=== PATIENT | male | born 1955 | race Caucasian/White ===

== ENCOUNTER 2019-11-22 16:59 | Emergency (ER) | payer MEDICARE, MEDICAID ==
[~2019-11-22 16:59] MED LIST: HYDR12.56; METF-869; METO-169; SIMV-8
== END 2019-11-22 17:27 | disposition left against medical advice (07) ==
LOC: ER 16:59
DX: R06.02 Shortness of breath (principal); Z53.21 Procedure and treatment not carried out due to patient leaving prior to being seen by health care provider

== ENCOUNTER 2019-12-05 14:46 | Inpatient (IN) | payer MEDICARE, MEDICAID ==
[~2019-12-05] VITALS: Ht 177.8 cm; Wt 90.0 kg
[2019-12-05] MEDS ORDERED: SODIUM CHLORIDE 0.9% 1,000 ML IV ONE ×2 (15:02)
[2019-12-05] MEDS ORDERED: LEVOFLOXACIN 500MG 100 ML IV ONE (15:15)
[2019-12-05] MEDS ORDERED: IOHEXOL 300 MG/ML 100ML BOTTLE IJ ONE (15:18)
[2019-12-05 15:29] LABS: Eosinophils # (auto) 0 uL; Hemoglobin 14.1 g/dL (13.5-17.5); Lymphocytes # (auto) 0.4 uL; Lymphocytes % (auto) 1.7 % (10.0-50.0); Mean Corpuscular Volume 82.8 fL (80.0-100.0)
[2019-12-05] MEDS ORDERED: ALBUTEROL SULF 2.5 MG/0.5ML(0.5%) NEB SOLN NEB ONE (15:30)
[2019-12-05] MEDS ORDERED: IPRATROPIUM BROM 0.5 MG/2.5ML INH SOL NEB ONE (15:30)
[2019-12-05] MEDS ORDERED: methylPREDNISolone SOD SUCC 125 MG/2 ML VL IV ONE (15:30)
[2019-12-05 15:33] LABS: Basophils # (auto) 0.2 uL; Basophils % (auto) 0.9 % (0.0-2.0); Hematocrit 43.6 % (41.0-53.0); Mean Corpuscular Hemoglobin 26.8 pg (28.0-32.0); Mean Corpuscular Hgb Conc. 32.4 g/dL (32.0-36.0); Monocytes # (auto) 1.2 uL; Monocytes % (auto) 4.8 % (0.0-12.0); Neutrophils % (auto) 92.6 % (37.0-80.0); Platelet Count (auto) 184 10^3/uL (140-450); Red Blood Cells 5.26 10^6/uL (4.5-5.90); Red Cell Distribution Width 16.1 % (11.8-14.3); White Blood Cell 24.8 10^3/uL (4.4-10.8)
[2019-12-05 15:44] LABS: Albumin 2.4 g/dL (3.4-5.0); Calcium 8.4 mg/dL (8.5-10.1)
[2019-12-05 15:46] LABS: BUN/Creatinine Ratio 54.4
[2019-12-05 15:47] LABS: Lactic Acid w/Reflex 2.7 mmol/L (0.4-2.0)
[2019-12-05 15:51] LABS: Bilirubin, Total 0.9 mg/dL (0.2-1.0); Total Protein 5.9 g/dL (6.4-8.2)
[2019-12-05 15:57] LABS: INR 1.16 (0.9-1.15); Partial Thromboplastin Time 26.5 sec (23.64-32.05)
[2019-12-05] MEDS ORDERED: MIDAZOLAM DRIP 50 mg/50mL 50 ML IV SCH (17:25)
[2019-12-05] MEDS ORDERED: ETOMIDATE (2MG/ML) 20ML VIAL IV ONE (17:30)
[2019-12-05] MEDS ORDERED: SUCCINYLCHOLINE CHLORIDE 20 MG/ML 10ML VIAL IV ONE (17:30)
[2019-12-05] MEDS ORDERED: MIDAZOLAM DRIP 50 mg/50mL 50 ML IV ONE (17:36)
[2019-12-05] MEDS ORDERED: VANCOMYCIN 1GM/250ML 250 ML IV ONE (18:00)
[2019-12-05] MEDS ORDERED: MORPHINE SULF INJ 2 MG/ML SYRINGE 1ML IV PRN ×2 (19:45)
[2019-12-05] MEDS ORDERED: VANCOMYCIN PER PHARMACY 0 MG IV SCH (19:45)
[2019-12-05] MEDS ORDERED: NITROGLYCERIN 0.4 MG SL TAB SL PRN (19:45)
[2019-12-05] MEDS: SODIUM CHLORIDE 0.9% 1,000 ML IV SCH (20:54)
[2019-12-05] MEDS: HYDROmorphone HCL 2 MG/ML VL IV PRN (20:54)
[2019-12-05] MEDS: FAMOTIDINE (10MG/ML) 2ML VL IV SCH (22:51)
[2019-12-05] MEDS: DexAMETHasone SOD PHOS 4 MG/1ML SDV INJ IV SCH (22:51)
[2019-12-05 22:57] VITALS: BP 127/76
[2019-12-05 23:30] VITALS: BP 121/84
--- NOTE | 2019-12-05 23:30 | NUR ---
Admit to [facility] WESLEY admitted to [facility] via gurney on monitoring analyst, and portable 02. Patient transferred to bed, connected to unit monitoring and oxygen, and weighed by bed scale. Patient oriented to LIANNE ALVAREZ, primary RN, unit, room, bed, and unit policies regarding patient care and visiting hours. All questions and concerns addressed, patient verbalized understanding.
[2019-12-06] VITALS (12 sets, daily range): BP systolic 120–138; BP diastolic 65–82
[2019-12-06] MEDS: HYDROmorphone HCL 2 MG/ML VL IV PRN ×4 (00:10→22:49)
--- NOTE | 2019-12-06 00:10 | NUR ---
MORNING CARE PERFORMED MORNING CARE WITH CHG WIPES AND WASH CLOTHS TO THE FACE. PARTIAL LINEN CHANGE AND GOWN CHANGED. REPOSITIONED FOR COMFORT. SKIN REASSESSED AT THIS TIME. BED IN LOWEST POSITION, SIDE RAILS UP X2, CALL LIGHT WITHIN REACH. WILL CONTINUE TO MONITOR.
[2019-12-06] MEDS ORDERED: VANCOMYCIN 1GM/250ML 250 ML IV SCH (05:00)
[2019-12-06 05:15] LABS: Basophils % (auto) 0.3 % (0.0-2.0); Eosinophils # (auto) 0 uL; Hemoglobin 13.4 g/dL (13.5-17.5); Lymphocytes # (auto) 0.4 uL; Mean Corpuscular Hemoglobin 26.7 pg (28.0-32.0); Monocytes # (auto) 1.1 uL
[2019-12-06 05:17] LABS: Basophils # (auto) 0 uL; Hematocrit 41.8 % (41.0-53.0); Mean Corpuscular Volume 83.3 fL (80.0-100.0); Monocytes % (auto) 5.6 % (0.0-12.0); Neutrophils # (auto) 17.4 uL; Neutrophils % (auto) 92.1 % (37.0-80.0); Platelet Count (auto) 159 10^3/uL (140-450); Red Blood Cells 5.02 10^6/uL (4.5-5.90); Red Cell Distribution Width 16.2 % (11.8-14.3); White Blood Cell 18.9 10^3/uL (4.4-10.8)
[2019-12-06 05:37] LABS: Potassium 4.9 mmol/L (3.5-5.1)
[2019-12-06 05:45] LABS: Albumin 2.3 g/dL (3.4-5.0); BUN/Creatinine Ratio 57.1; Bilirubin, Total 0.8 mg/dL (0.2-1.0); Calcium 8.3 mg/dL (8.5-10.1); Total Protein 5.6 g/dL (6.4-8.2)
[2019-12-06] MEDS: SODIUM CHLORIDE 0.9% 1,000 ML IV SCH ×3 (06:43→23:09)
[2019-12-06] MEDS: LEVOFLOXACIN 750MG 150 ML IV SCH ×2 (06:44→09:28)
[2019-12-06] MEDS: DexAMETHasone SOD PHOS 4 MG/1ML SDV INJ IV SCH ×3 (06:45→22:49)
[2019-12-06] MEDS: ALBUTEROL SULF 2.5 MG/0.5ML(0.5%) NEB SOLN NEB PRN ×2 (06:55→22:22)
[2019-12-06] MEDS: IPRATROPIUM BROM 0.5 MG/2.5ML INH SOL NEB PRN ×3 (06:55→22:19)
--- NOTE | 2019-12-06 07:10 | NUR ---
END OF SHIFT REPORT GIVEN TO DAY SHIFT. CARE ENDORSED.
--- NOTE | 2019-12-06 08:20 | NUR ---
Opening Shift Note Assumed care of patient, awake and alert. Sitting up with sheppard position on the bed, on HF FiO2 75% with 35 LPM. Instructed on POC and to call for assist PRN, will continue to monitor for changes Q1hr and PRN.
--- NOTE | 2019-12-06 08:43 | NUR ---
Paged RT for desaturation, patient sitting up on the bed, having breakfast and had urinating once, developed SOB and desaturation, patient stated t hat doesn't want intubation.
--- NOTE | 2019-12-06 08:45 | NUR ---
O2 saturation 79-81%, SOB, RT at the bedside, Increased FiO2 to 90%, flow 40 LPM. will continue to monitor, patient still sitting up.
[2019-12-06] MEDS: FAMOTIDINE (10MG/ML) 2ML VL IV SCH ×2 (09:28→22:49)
--- NOTE | 2019-12-06 09:49 | NUR ---
Daughter Tatiana left me a message last night on my office phone requesting a callback. I called her this morning at 0945AM. She had a complaint about the ER last night. The nurse would not give her information about her father and hung up on her. According to the notes, she hung up on the ER nurse. She didn't have the password. I told her I would speak to my nurse in the ER. She also has a complaint about Dr. Armenta from her fathers last visit. She doesn't want him taking care of her father on this visit. I apologized for her bad experience at [facility]. She said when her mother was here with lung cancer, it was wonderful. I told her to ask for Filomena if she had anymore issues while her father is here. He is a DNR with terminal lung cancer. I told her I would see her in [facility] today.
--- NOTE | 2019-12-06 10:12 | NUR ---
Called and left the message to daughter because patient requested me to call her. Patient stated that he would like to see Doctor, he would like to take every things out, stop using oxygen, i told him that we waiting an assignment for MD and offered to call daughter and wait until his daughter to come in and will make the decision at that time. Patient sitting on the bed, continue HF at this time.
--- NOTE | 2019-12-06 10:18 | NUR ---
Called and talked to Marisol per patient requested, patient made aware that she is on the way to the hospital, and i left the message to his daughter to call back or just come.
--- NOTE | 2019-12-06 10:28 | NUR ---
Received a call form Dr. Ricci. Called to Patho ([id number]) and left the message that MD would like to see the patho result from last admit, left the [facility] fax number to fax over.
--- NOTE | 2019-12-06 10:45 | NUR ---
at the bedside , seen and examined patient at his time, his girlfriend (Blanco) also at the bedside. Plan of care discussed with patient, patient and Marisol made the decision to continue DNR, plan to D/C to SNF with hospice, patient and his family prefer [facility]. Received order for full liquid diet, patient refused other treatment, refused IV antibiotic, made aware that Dr. Herring will see patient later.
--- NOTE | 2019-12-06 10:55 | NUR ---
Dr. Herring at the bedside, seen and examined patient at this time, plan of care discussed with patient and his girlfriend at the bedside.
--- NOTE | 2019-12-06 11:00 | NUR ---
Dr. Ricci made aware about the arrhythmia that showing short run VT. Will continue to monitor and care, patient still DNR, refused other treatment, received order to D/C Antibiotic.
[2019-12-06] MEDS ORDERED: LORazepam 0.5 MG TAB PO PRN (11:15)
--- NOTE | 2019-12-06 12:15 | NUR ---
Patient able to take aq nap after Dilaudid given. O2 saturation 88-92% with HF. His daughter and Girl friend at the bedside. Will continue to monitor and care.
--- NOTE | 2019-12-06 13:00 | NUR ---
Patient refused the food on the tray, only drinking water and orange juice , no aspiration noted.
[2019-12-06] MEDS ORDERED: LORazepam 2MG/ML-1ML VIAL IV PRN (14:30)
--- NOTE | 2019-12-06 14:40 | NUR ---
Dilaudid given for comfort, continue HF O2 90% with 40 lpm, O2 saturation 88-92%, completed Handy changed, insert Rodriguez's catheter at this time for prolong immobilization No 14 F, patient and families agreed with the plan of care.
--- NOTE | 2019-12-06 15:00 | NUR ---
Melendez catheter insertion Patient assessed and determined to be in need of melendez catheter. Order obtained from MD. Patient and families educated on catheter and reason for insertion. All questions answered. Melendez catheter 14 guage Upper Sor[place] inserted with clean sterile technique. Patient tolerated well.
--- NOTE | 2019-12-06 16:21 | NUR ---
His daughter and other family member at the bedside, patient able to take a nap, HR 100-110 with rare short run VT from 4-10 beats, SBP 120 mmHg, O2 saturation 90%. Will continue to monitor and care.
--- NOTE | 2019-12-06 17:54 | NUR ---
Patient still sleeping, Vital sign stable, continue HF, O2 saturation 90%, RR 16-22 /min, HR 100-110/min. Will continue to monitor and care.
[2019-12-06] MEDS: ALBUTEROL SULF 2.5 MG/0.5ML(0.5%) NEB SOLN NEB SCH (18:13)
--- NOTE | 2019-12-06 19:45 | NUR ---
OPEN SHIFT NOTE PATIENT IS RESTING IN BED WITH EYES CLOSED, NO SIGNS OF DISTRESS OR SOB ON HIGH FLOW NC, COARSE LUNG SOUNDS HEARD THROUGHOUT.PATIENT OPENS EYES BUT DOES NOT ANSWER TO QUESTIONS AT THIS TIME:WAS MEDICATED FOR PAIN BY DAY SHIFT RN. VS STABLE: SEE SPREADSHEET. PHYSICAL ASSESSMENT COMPLETED: SEE INTERVENTIONS. INSTRUCTED PATIENT TO CALL FOR ASSIST,CALL LIGHT WITHIN EASY REACH. CONTINUE MONITORING PT CLOSELY.
[2019-12-06] MEDS: MORPHINE SULF 30 mg ER tab PO SCH (22:00)
--- NOTE | 2019-12-06 22:50 | NUR ---
PAIN PATIENT REQUESTING PAIN MEDICATION, PER PATIENT HE IS HAVING GENERALIZED BODY PAIN RATED 10/10 IN SEVERITY. DILAUDID GIVEN TO PATIENT PER ORDERS: SEE E-MAR. WILL CONTINUE TO MONITOR FOR EFFECTIVENESS.
[2019-12-07] VITALS (10 sets, daily range): BP systolic 83–125; BP diastolic 32–103
[2019-12-07] MEDS: ALBUTEROL SULF 2.5 MG/0.5ML(0.5%) NEB SOLN NEB SCH ×3 (00:08→12:14)
--- NOTE | 2019-12-07 02:30 | NUR ---
PATIENT SITTING ON EDGE OF BED, UPON ENTERING ROOM PATIENT STATES HE DOES NOT REMEMBER WHERE HE IS. ORIENTED PATIENT APPROPRIATELY TO LOCATION,REASON AND TIME . PATIENT VERBALIZES UNDERSTANDING. LINEN CHANGE STRAIGHTENED OUT AND ASSISTED PATIENT BACK INTO BED. REPOSITIONED PATIENT IN BED FOR COMFORT. BED ALARM PLACED AND CALL LIGHT GIVEN TO PATIENT. CONTINUE POC.
[2019-12-07] MEDS: HYDROmorphone HCL 2 MG/ML VL IV PRN ×8 (02:57→22:02)
[2019-12-07 05:35] LABS: Calcium 8.1 mg/dL (8.5-10.1); Potassium 5.1 mmol/L (3.5-5.1)
[2019-12-07 05:37] LABS: BUN/Creatinine Ratio 56.8
[2019-12-07] MEDS: DexAMETHasone SOD PHOS 4 MG/1ML SDV INJ IV SCH ×2 (06:14→13:31)
--- NOTE | 2019-12-07 06:15 | NUR ---
ROUNDS PATIENT CURRENTLY RESTING WITH EYES CLOSED, NO S/S OF DISTRESS/SOB OR PAIN. CONTINUES TO BE ON HIGH FLOW NC 90%FIO2 50L, SPO2 90%, HR 97, RR 12. CONTINUE MONITORING PATIENT CLOSELY.
[2019-12-07] MEDS: IPRATROPIUM BROM 0.5 MG/2.5ML INH SOL NEB PRN ×2 (06:25→12:14)
--- NOTE | 2019-12-07 07:10 | NUR ---
Opening Shift Note Assumed care of patient, awake, sitting up on the bed, keep saying "take it out" and then took the HF out b himself and said "stop stop" he refused to have it back, Dilaudid given. Patient shaking the side rail and would like to get up. Instructed on POC and to call for assist PRN, will continue to monitor for changes Q1hr and PRN. Will continue to monitor and care.
--- NOTE | 2019-12-07 07:15 | NUR ---
Called and left the message to Marisol (girlfriend) due to patient's condition. Left tel number for call back.
--- NOTE | 2019-12-07 07:20 | NUR ---
Patient sitting up on the bed, okay to have HF 90% with 50 LPM, O2 saturation 80-89% will continue to monitor and care.
--- NOTE | 2019-12-07 07:30 | NUR ---
Patient more calm, still able using right hand to hold a cup for drinking water, no coughing at his time.
--- NOTE | 2019-12-07 08:08 | NUR ---
Patient sitting up on the bed, able to rest and taking a nap at this time, no restless noted, HR 100/min, RR 14 /min, O2 saturation 85-88% with HF 90% 50 LPM. BP 93/62 mmHg, no family at the bedside or call back yet.
--- NOTE | 2019-12-07 08:31 | NUR ---
Offer Ice and water, orang juice at the bedside.
[2019-12-07] MEDS: MORPHINE SULF 30 mg ER tab PO SCH (08:53)
[2019-12-07] MEDS: SODIUM CHLORIDE 0.9% 1,000 ML IV SCH (08:54)
[2019-12-07] MEDS: FAMOTIDINE (10MG/ML) 2ML VL IV SCH (09:00)
--- NOTE | 2019-12-07 09:45 | NUR ---
Dr. Ricci at the bedside, no family at this time, patient still asleep. Will call MD when his family come and visit patient for discussed the plan of care.
--- NOTE | 2019-12-07 10:25 | NUR ---
Dr. Herring at the bedside, no family at this time. MD discussed the plan of care together, will discuss with his family (daughter).
[2019-12-07] MEDS ORDERED: SODIUM CHLORIDE 0.9% 1,000 ML IV SCH (10:30)
--- NOTE | 2019-12-07 11:00 | NUR ---
Dr. Ricci at he bedside, plan of care discussed with Tatiana (daughter: POJared) about comfort measures care only, she made aware, would like to wait all of her families to come and make the decision together or at least everybody seeing patient before patient get more unconsciousness. Daughter calling paster plan to let they come today.
--- NOTE | 2019-12-07 12:30 | NUR ---
Cem at the bedside.
--- NOTE | 2019-12-07 14:25 | NUR ---
All the families at the bedside, paged Dr. Ricci hankins sup made aware about the plan.
[2019-12-07] MEDS ORDERED: fentaNYL 50MCG/HR 50 MCG/HR PAT TD SCH (14:45)
--- NOTE | 2019-12-07 14:45 | NUR ---
Dr. Ricci at the bedside, plan of care discussed with all his families, they agreed with comfort measures care only, will give Fentanyl patch, received new orders, will D/C HF and then change to Simple mask (slowly taping off of Oxygen). Will continue to monitor and care.
[2019-12-07] MEDS ORDERED: LORazepam 2MG/ML-1ML VIAL IV PRN (15:00)
--- NOTE | 2019-12-07 15:35 | NUR ---
Changed to Simple mask 15 LPM, at his time.
--- NOTE | 2019-12-07 15:44 | NUR ---
Per Dr. Ricci, patient will transfer to [place] for comfort measures care, and families agreed for private room, already ordered for comfort cart for families.
--- NOTE | 2019-12-07 16:08 | NUR ---
O2 saturation 84-86% with simple mask 15 LPM. RR 12-14 /min, HR 110-120 with sinus tachycardia and rare short run VT (4-8 beats). [id number] mmHg, families still at the beside.
--- NOTE | 2019-12-07 19:46 | NUR ---
OPENING SHIFT NOTE PATIENT IS RESTING IN BED WITH EYES CLOSED, DOES NOT OPEN EYES TO VOICE AT THIS TIME. PATIENT IS NOW COMFORT CARE ,DNR.TITRATED FROM HIGH FLOW NC TO SIMPLE MASK AT 15L DURING THE DAY.COARSE LUNG SOUNDS AUSCULTATED THROUGHOUT, SPO2 CURRENTLY 85%, BREATHING NOTED TO BE MORE LABORED. PATIENT'S FAMILY IS AT BEDSIDE, CONFIRMED WITH DAUGHTER AND GIRLFRIEND CHRISTIANO IF THEY WOULD LIKE FOR THE PATIENT TO RECEIVE DILAUDID Q2H AROUND THE CLOCK AND FAMILY AGREES, WILL FOLLOW THROUGH. INFORMED FAMILY IF THEY NEED ANYTHING TO CALL, FAMILY VERBALIZE UNDERSTANDING. CONTINUE MONITORING AND COMFORT MEASURES.
--- NOTE | 2019-12-07 20:41 | NUR ---
PATIENT TURNED AND REPOSITIONED FOR COMFORT. RECLINER CHAIR PROVIDED FOR FAMILY.
--- NOTE | 2019-12-07 22:43 | NUR ---
PATIENT STATUS PATIENT CONTINUES TO REST WITH EYES CLOSED, BREATHING NOTED TO BE RETRACTIVE WITH ACCESSORY MUSCLE USE. PATIENT ON 15L SIMPLE MASK WITH SPO2 88%, BLOOD PRESSURE 82/43, RR 22, HR 114. TWO FAMILY MEMBERS CONTINUE TO BE AT BEDSIDE. PATIENT APPEARS TO NOT BE IN ANY PAIN AT THIS TIME. FAMILY WITH CALL LIGHT AWARE TO PRESS RN BUTTON FOR ASSISTANCE. CONTINUE POC.
[2019-12-08] MEDS: HYDROmorphone HCL 2 MG/ML VL IV PRN ×2 (00:06→02:30)
--- NOTE | 2019-12-08 03:00 | NUR ---
UPDATED PATIENT'S SIGNIFICANT OTHER CHRISTIANO AT BEDSIDE ON VITAL SIGN CHANGES AND EDUCATED ON NORMAL VITAL SIGNS, VERBALIZES UNDERSTANDING.
[2019-12-08 04:19] VITALS: BP 58/30
--- NOTE | 2019-12-08 05:24 | NUR ---
EKG SHOWING FLAT LINE HOSPITALIST DEMETRIUS ROBERTS PAGED TO PRONOUNCE PATIENT
--- NOTE | 2019-12-08 06:08 | NUR ---
TIME OF 1755
--- NOTE | 2019-12-08 06:10 | NUR ---
HOSPITALIST AT BEDSIDE
--- NOTE | 2019-12-08 06:38 | NUR ---
SPOKE WITH JAVIER WOODS FROM [facility] OVER THE PHONE REFERENCE # [id number] REQUESTING PATIENT'S ADVANCED DIRECTIVE, WILL FAX OVER PER REQUEST
--- NOTE | 2019-12-08 06:45 | NUR ---
SPOKE WITH INVERFORM MACHINE OPERATOR OVER THE PHONE, AWAITING CALL BACK
--- NOTE | 2019-12-08 07:20 | NUR ---
CARE ENDORSED TO CHRISTIAN MITCHELL FAMILY LEFT BEDSIDE AND PROVIDED WITH DIRECT PHONE NUMBER TO UNIT FAMILY HAS NOT CHOSEN MORTUARY AND WILL CALL REGARDING DECISION
--- NOTE | 2019-12-08 08:19 | NUR ---
VANCE FROM [facility] CALLED TO SEE IF FINGER COBBLER HAS CLEARED PATIENT WELL IF FAMILY PICKED OUT MORTUARY. FAMILY HAS NOT PICKED OUT MORTUARY AT THIS TIME.
--- NOTE | 2019-12-08 08:57 | NUR ---
CALL TO [employer]AN[employer] INSPECTOR TO FOLLOW UP WITH REPORT OF . [employer] INSPECTOR OFFICE STATES , "STILL ON THE CALL BACK LIST."
--- NOTE | 2019-12-08 10:17 | NUR ---
VANCE FROM [facility] CALLED TO SEE IF AIRCRAFT ARMAMENT MECHANIC HAS CLEARED PATIENT, INSTRUCTED HER WE ARE STILL WAITING FOR AIRCRAFT ARMAMENT MECHANIC TO CALL BACK.
--- NOTE | 2019-12-08 13:44 | NUR ---
CALL FROM DAUGHTER ANNA WITH MORTUARY INFORMATION. MORTUARY SELECTED WILL BE [facility] [phone].
--- NOTE | 2019-12-08 14:17 | NUR ---
ACCOUNT GROUP SUPERVISOR RETURNED CALL. ACCOUNT GROUP SUPERVISOR DAGMAR PRICE RELEASE # [id number].
--- NOTE | 2019-12-08 15:12 | NUR ---
CALLED HIGH PENDING SALE TO [facility] REGARDING PATIENT. STATE THEY WILL FUND ACCOUNTANT IN 1.5-2 HOURS.
--- NOTE | 2019-12-08 16:40 | NUR ---
PATIENT TAKEN TO HOSPITAL MORTUARY.
== END 2019-12-08 16:35 | disposition expired | DRG 871 ==
LOC: EDBD 14:46 → EDUNIT# 14:46 → ER 14:46 → TELE 14:47 → DOU IN ICU 23:26
PROVIDERS: ADMIT Nurse Practitioner Acute Care; ATTEND Internal Medicine
DX: A41.9 Sepsis, unspecified organism (principal); J18.9 Pneumonia, unspecified organism; J96.01 Acute respiratory failure with hypoxia; E43 Unspecified severe protein-calorie malnutrition; J96.21 Acute and chronic respiratory failure with hypoxia; C34.90 Malignant neoplasm of unspecified part of unspecified bronchus or lung; C79.31 Secondary malignant neoplasm of brain; C79.00 Secondary malignant neoplasm of unspecified kidney and renal pelvis; C78.7 Secondary malignant neoplasm of liver and intrahepatic bile duct; C78.00 Secondary malignant neoplasm of unspecified lung; C76.0 Malignant neoplasm of head, face and neck; Z66 Do not resuscitate; E86.0 Dehydration; I10 Essential (primary) hypertension; F41.9 Anxiety disorder, unspecified; E11.9 Type 2 diabetes mellitus without complications; E78.00 Pure hypercholesterolemia, unspecified; D72.823 Leukemoid reaction; Z51.5 Encounter for palliative care; Z68.28 Body mass index [BMI] 28.0-28.9, adult; Z88.0 Allergy status to penicillin; Z88.1 Allergy status to other antibiotic agents; Z92.3 Personal history of irradiation
CPT/HCPCS: 36415; 70491; 71260; 80048; 80053; 83605; 83735; 83880; 84484; 85025; 85610; 85730; 87040; 87081; 94640; 94762; 96361; 96365; 96367; 96375; 99291; G0378; J0330; J1100; J1956; J2250; J3490